=== PATIENT | female | born 1970 | race Caucasian/White ===

== ENCOUNTER → 2016-10-08 | Outpatient (CLI) | payer BC, OTHER | LOC: MC.RAD 15:51 | DX: Z12.31 Encounter for screening mammogram for malignant neoplasm of breast (principal) ==

== ENCOUNTER → 2017-10-14 | Outpatient (CLI) | payer BC, OTHER | LOC: MC.RAD 13:20 | DX: Z12.31 Encounter for screening mammogram for malignant neoplasm of breast (principal) ==

== ENCOUNTER 2018-10-27 21:02 | Emergency (ER) | payer BC, OTHER ==
[~2018-10-27] VITALS: Ht 167.6 cm; Wt 85.0 kg
[2018-10-27 21:08] VITALS: BP 130/71; TEMP 98.7
[2018-10-28] MEDS ORDERED: NORCO 325 MG-51 TAB PO (00:54)
[2018-10-28 00:57] VITALS: PULSE 69
== END 2018-10-28 00:57 | disposition home or self-care (01) ==
LOC: COL.ER 21:02
DX: S93.402A Sprain of unspecified ligament of left ankle, initial encounter (principal); X50.0XXA Overexertion from strenuous movement or load, initial encounter; Y92.009 Unspecified place in unspecified non-institutional (private) residence as the place of occurrence of the external cause
CPT/HCPCS: Q4045

== ENCOUNTER → 2018-10-27 | Outpatient (CLI) | payer BC, OTHER ==
[~2018-10-27] MED LIST: NORCO 325 MG-51 TAB PO
== END ==
LOC: MC.RAD 15:56
DX: Z12.31 Encounter for screening mammogram for malignant neoplasm of breast (principal)

== ENCOUNTER → 2019-01-08 | Outpatient (CLI) | payer BC, OTHER | LOC: COL.VAS 08:30 | DX: Z13.6 Encounter for screening for cardiovascular disorders (principal); M79.89 Other specified soft tissue disorders ==

== ENCOUNTER → 2019-12-16 | Outpatient (CLI) | payer BC, OTHER | LOC: MC.RAD 15:49 | DX: Z12.31 Encounter for screening mammogram for malignant neoplasm of breast (principal) ==

== ENCOUNTER → 2021-02-02 | Outpatient (CLI) | payer BC, OTHER | LOC: MC.RAD 07:55 | DX: R92.8 Other abnormal and inconclusive findings on diagnostic imaging of breast (principal) ==

== ENCOUNTER → 2021-06-06 | Outpatient (CLI) | payer BC, OTHER | LOC: COL.RAD 10:21 | DX: M19.072 Primary osteoarthritis, left ankle and foot (principal) | CPT/HCPCS: J3301; Q9967 ==